=== PATIENT | female | born 1985 | race Caucasian/White ===

== ENCOUNTER 2017-10-10 08:38 | Outpatient (CLI) | payer BC ==
[2017-10-10] MEDS ORDERED: Iopamidol 370 76% 100 ML VIAL ONE (09:00)
--- NOTE | 2017-10-10 10:17 | CT ---
CT ABDOMEN WITH AND WITHOUT IV CONTRAST: DATE: 10/10/17. HISTORY: Right renal mass. The patient states she feels a bulge on the right side since in 2014. T he patient states that in 2015 while she was , the patient had an ultrasound exam that diagno sed right kidney mass. FINDINGS: There is a nonobstructing 4 mm calculus in the inferior pole left kidney. There is a punctate nonobs tructing calculus in the inferior pole right kidney. No hydronephrosis is present. There is no evid ence of a renal mass involving the kidneys bilaterally. A subcentimeter too small to characterize hypodense lesion is seen in the right hepatic lobe. The li janet is otherwise normal in appearance. The lung bases, spleen, pancreas, bilateral adrenal glands, and abdominal aorta demonstrate a normal CT appearance for phase of imaging. There is a moderate amount of retained fecal material seen in the visualized colon. The free fluid, fluid collection, or lymphadenopathy is seen in the abdomen. There is a midline hernia at the level of the umbilicus with loop of bowel extending into the defect, but the defect is approximately 3.4 cm in width. There is no bowel obstruction. IMPRESSION: 1. Nonobstructing bilateral renal calculi. 2. No evidence of a right renal mass as reported by clinical history. 3. Constipation. 4. Umbilical hernia. POS: [facility]
== END 2017-10-10 08:39 | disposition home or self-care (01) ==
LOC: SCSCT 08:38
PROVIDERS: ATTEND Family Medicine
DX: N28.89 Other specified disorders of kidney and ureter (principal); N20.0 Calculus of kidney; K59.00 Constipation, unspecified; K42.9 Umbilical hernia without obstruction or gangrene
CPT/HCPCS: 74170